=== PATIENT | female | born 1985 | race Hispanic/Latino ===

== ENCOUNTER 2019-03-29 19:22 | Emergency (ER) | payer OTHER | END 2019-03-29 19:45 | disposition home or self-care (01) | LOC: EDH 19:22 | DX: D17.9 Benign lipomatous neoplasm, unspecified (principal) | CPT/HCPCS: 99281 ==

== ENCOUNTER 2023-08-08 17:04 | Emergency (ER) | payer OTHER | END 2023-08-08 18:43 | disposition left against medical advice (07) | LOC: EDH 17:04 | DX: M54.50 Low back pain, unspecified (principal); Z53.21 Procedure and treatment not carried out due to patient leaving prior to being seen by health care provider ==

== ENCOUNTER 2025-05-07 18:43 | Emergency (ER) | payer SELFPAY ==
[~2025-05-07] VITALS: Ht 154.9 cm; Wt 52.7 kg
[2025-05-07 18:51] VITALS: BP 104/68; PULSE 89; RESP 16; TEMP 98.4; O2SAT 99
--- NOTE | 2025-05-07 19:11 | ERN ---
ED Note History of Present Illness Stated Complaint: ABSCESS Chief Complaint: Abscess Time Seen by MD: 18:54 Dictation: Patient is a 40-year-old female coming today with complaints of something very painful and hard around her rectum she has had off and on for she does not know how long. She states it has just gotten larger and she has been here before for the same complaint. She denies any fever chills denies any history of hemorrhoids although she is not sure what she has got. The primary care doctor. Later in the visit, patient's came into the room and informed patient that she has had the placed on her right buttock for five years. Allergies: Coded Allergies: No Known Drug Allergies (Unverified Allergy, Unknown, 04/06/16) Past Medical History Past Medical History: No Pertinent History Surgical History: Cholecystectomy, History: Not Applicable RN Note Reviewed/Agreed w/PFSH: Yes Review of System Dictation CONSTITUTIONAL: Negative except for HPI HEAD/FACE: Negative except for HPI EENT: Negative except for HPI RESPIRATORY: Negative except for HPI GASTROINTESTINAL/ABDOMINAL: Negative except for HPI GENITOURINARY: Negative except for HPI MUSCULOSKELETAL: Negative except for HPI right gluteal tenderness INTEGUMENTARY: Negative except for HPI NEUROLOGICAL/PSYCH: Negative except for HPI HEMATOLOGIC/LYMPHATIC: Negative except for HPI All Systems Negative, Except as noted above. 13 point review of systems assessed and all negative except for above. 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 Head and Face: non-traumatic. Eyes: PERRL, pink conjunctivas, eyelid no trauma, anterior chamber with arcus senilis. Ears: Pinnas intact and no signs of trauma or erythema ear canals clear and no discharge TM no erythema Nose: No discharge, no bleeding. Oropharynx: Mouth normal, tongue pink, pharynx clear,no erythema, tonsils no exudates, no abscesses noted, mucous membrane moist Neck: Supple, non-tender, no thyromegaly, no masses, no JVD, no bruits Breast:Deferred Chest:No tenderness, no crepitus, no paradoxical movement, no retractions Lungs:Clear, well-ventilated, symmetric, no rales, no wheezing, no rhonchi, no stridor, good breath sounds bilaterally Heart: Regular rate, regular rhythm, no murmur, no gallops Vascular: no peripheral edema, Abdomen: Soft, positive bowel sounds, nondistended, no guarding, nontender, no rebound, no masses no hepatomegaly, no splenomegaly, no Rabago's sign, no hernias. Rectal: Deferred Genital: Deferred Neurological: Normal speech, motor function intact, sensory function intact Musculoskeletal: Neck nontender, full range of motion, back nontender, full range of motion, Extremities: nontender, full range of motion Skin: Color pink, dry, right gluteal lipoma approximate 2 x 3 cm. No fluctuance. It is mobile. No erythema Lymphatic: Deferred Results (Laboratory/Radiology) Labs Reviewed?: Yes ED Course ED Course Vital Signs Date Time Temp Pulse Resp B/P (MAP) Pulse Ox O2 Delivery O2 Flow Rate FiO2 05/07/25 18:51 98.4 89 16 104/68 99 Room Air* 0 21 05/07/25 18:48 98.4 89 16 104/68 99 Room Air 0 1925/explained to patient and her that this was a lipoma, I we will treat for pain and refer her to a general surgeon for future interventions Medical Decision Making MDM Medical decision-making based on physical exam. Patient has a well-circumscribed lipoma to her right gluteus No intervention needed this time. We will control pain and send patient to general surgeon DX & DISP Disposition: Discharge Departure Impression: Primary Impression: Lipoma of buttock Condition: Stable Scripts Ibuprofen (Ibuprofen) 600 Mg Tablet 600 MG PO Q6H PRN for PAIN, #30 TAB Prov: HARSH SOTOMAYOR PRODUCT INTRODUCTION MANAGER 05/07/25 Additional Instructions: Follow-up with primary care provider in 1 to 2 days. Take medications as directed here in the emergency room. Okay to continue home medications unless otherwise discussed during your visit in the emergency room today. Return to your nearest emergency room if symptoms worsen or if there is no improvement. Call 911 if you need immediate assistance. Take Tylenol or Motrin [id number] as needed and if no contraindications are present. Increase oral hydration. A wound culture or urine culture was ordered here in the emergency room department please follow-up with primary care provider and advise them to get repeat ports from our facility. If you had any Juma wrap/splints that were applied here, please do not remove them until you see your primary care or specialty. Call general surgeon for an appointment in the next 1-2 days. Take ibuprofen as needed for pain. Referrals: SELF,REFERRAL (PCP) MAX SCHUMACHER MD Time of Disposition: 19:26 I have reviewed the case, and I agree with, Diagnosis and Plan HARSH SOTOMAYOR NP May 07, 2025 19:11
[2025-05-07] MEDS ORDERED: IBUP-1492 PO (19:28)
== END 2025-05-07 19:45 | disposition home or self-care (01) ==
LOC: EDH 18:43
DX: D17.1 Benign lipomatous neoplasm of skin and subcutaneous tissue of trunk (principal); Z90.49 Acquired absence of other specified parts of digestive tract
CPT/HCPCS: 99282